=== PATIENT | female | born 1970 | race Caucasian/White ===

== ENCOUNTER 2018-11-10 00:19 | Emergency (ER) | payer BC ==
[~2018-11-10] VITALS: Ht 160 cm; Wt 72.7 kg
[2018-11-10 00:51] VITALS: BP 125/70
--- NOTE | 2018-11-10 01:03 | NUR ---
Patient denies any medical complaint at this time.
== END 2018-11-10 01:28 ==
LOC: ER 00:20
DX: Z04.3 Encounter for examination and observation following other accident (principal)
CPT/HCPCS: 99283